=== PATIENT | female | born 1955 | race Caucasian/White ===

== ENCOUNTER 2018-01-26 19:34 | Inpatient (IN) | payer OTHER, MEDICAID ==
--- NOTE | 2018-01-26 19:43 | EDPHY ---
H & P Source: Patient, Police, EMS Exam Limitations: No limitations - Personal History Current Tetanus/Diphtheria Vaccine: Yes - Medical/Surgical History Hx Asthma: No Hx Chronic Respiratory Disease: No Hx Diabetes: No Hx Cardiac Disease: No Hx Renal Disease: No Hx Cirrhosis: No Hx Alcoholism: No Hx HIV/AIDS: No Hx Splenectomy or Spleen Trauma: No - Family History Significant Family History: No pertinent family hx - Social History Smoking Status: Former smoker Alcohol Use: Occasionally Drug Use: None Time Seen by Provider: 01/26/18 19:35 HPI/ROS: CHIEF COMPLAINT: Limited trauma HISTORY OF PRESENT ILLNESS: The patient is a 62-year-old female who was walking her dog and was pulled to the ground by the dog. She has a laceration to right forehead and a hematoma to her right shoulder and right wrist. She denies pain in her shoulder wrist and has normal range of motion. She does have little bit of pain on the right side of her head. She denies vision changes. She denies neck pain. She denies recent alcohol or drug use but does seem slightly intoxicated. It is unknown whether there was loss of consciousness. Severity: Moderate Modifying factors: None REVIEW OF SYSTEMS: Constitutional: denies: chills, fever, recent illness, recent injury EENTM: denies: blurred vision, double vision, nose congestion Respiratory: denies: cough, shortness of breath Cardiac: denies: chest pain, irregular heart rate, lightheadedness, palpitations Gastrointestinal/Abdominal: denies: abdominal pain, diarrhea, nausea, vomiting, blood streaked stools Genitourinary: denies: dysuria, frequency, hematuria, pain Musculoskeletal: See HPI Skin: denies: lesions, rash, jaundice, bruising Neurological: denies: headache, numbness, paresthesia, tingling, dizziness, weakness Hematologic/Lymphatic: denies: blood clots, easy bleeding, easy bruising Immunologic/allergic: denies: HIV/AIDS, transplant 10 systems reviewed and negative except as noted EXAM: GENERAL: Well-appearing, well-nourished and in no acute distress. HEAD: Laceration right forehead, eyebrow EYES: Pupils equal round and reactive to light, extraocular movements intact, sclera anicteric, conjunctiva are normal. ENT: TMs normal, nares patent, oropharynx clear without exudates. Moist mucous membranes. NECK: Nontender, C-collar cleared by me. Normal range of motion, supple without lymphadenopathy or JVD. LUNGS: Breath sounds clear to auscultation bilaterally and equal. No wheezes rales or rhonchi. HEART: Regular rate and rhythm without murmurs, rubs or gallops. ABDOMEN: Soft, nontender, normoactive bowel sounds. No guarding, no rebound. No masses appreciated. BACK: No CVA tenderness, no spinal tenderness, step-offs or deformities EXTREMITIES: Normal range of motion despite hematomas, denies pain, no pitting or edema. No clubbing or cyanosis. NEUROLOGICAL: Cranial nerves II through XII grossly intact. Normal speech, normal gait. 5/5 strength, normal movement in all extremities, normal sensation , normal reflexes. GCS is 15. PSYCH: Normal mood, normal affect. SKIN: See above, hematoma to right wrist and right shoulder. Warm, dry, normal turgor, no visible rashes or lesions. (Ronald Sheppard) Constitutional: Initial Vital Signs Temperature (C) 36.9 C 01/26/18 19:49 Heart Rate 88 01/26/18 19:49 Respiratory Rate 18 01/26/18 19:49 Blood Pressure 122/79 H 01/26/18 19:49 O2 Sat (%) 94 01/26/18 19:49 O2 Delivery Mode Room Air Allergies/Adverse Reactions: No Known Allergies Allergy (Unverified 01/26/18 20:20) Home Medications: Medication Instructions Recorded LORazepam [Ativan (*)] 1 mg PO BID PRN 01/26/18 PARoxetine HCL [Paxil 30mg (*)] 30 mg PO HS 01/26/18 Alendronate Sodium [Fosamax 70 MG 70 mg PO Q7D 01/27/18 (*)] Atorvastatin Calcium [Lipitor 40 40 mg PO DAILY 01/27/18 mg (*)] Calcium Carbonate/Vitamin D3 1 tab PO DAILY 01/27/18 [Calcium 600-Vit D3 800 Tablet] Ferrous Sulfate [Ferrous Sulf 325 325 mg PO DAILY 01/27/18 MG (*)] OLANZapine [Zyprexa] 15 mg PO HS 01/27/18 lamoTRIgine [LamICTAL 100 MG (*)] 200 mg PO HS 01/27/18 Medical Decision Making - Diagnostics Imaging: Discussed imaging studies w/ technical program manager Radiologist Procedures: My involvement the care this patient is solely for procedure. Please see the note of the attending physician for all other aspects of care. PROCEDURE: Laceration repair Consent: Verbal Location: Forehead Length of repair: 7 cm total Complexity: Complex Layer involvement: Full-thickness Anesthesia: Local per Dr. Sheppard Irrigation: Extensive Debridement: None Procedure description: Following good anesthesia, the wound was copiously irrigated. Wound bed was explored with a sterile glove, and there is no foreign body noted. There was apparent injury to the subcutaneous tissue. There was maceration of the overlying fascia from the frontalis muscle. No compromise of the galea. Wound borders were approximated as well as could be with such extensive maceration. Tolerated well without complication. Suture/Staple material: Subcutaneous and fascial layer: 4-0 Vicryl, 15 simple running figure-eight sutures. Cutaneous layer: 11 simple interrupted sutures Wound care: Routine as discussed Suture/Staple removal: 7 Days (Dimitri Preciado) ED Course/Re-evaluation: 8:20 p.m. The patient has intracranial bleeding and fracture of her orbital wall and right mandible. I will add CT of her neck and face. She continues to deny neck pain. I placed her cervical collar back on. She continues to move all of her extremities without difficulty. we will clean and repair her scalp laceration. 8:25 p.m. I discussed the case with Dr. Josef Echeverria who consulted suggested miss into the trauma service step-down. 9:00 p.m. I discussed the case with Dr. Merritt Willingham who will admit to the trauma service and asking that we perform CT of her chest and abdomen as well. 9:20 p.m. I discussed the case with Dr. Estevez from Oral surgery who will evaluating the morning. Also discussed the case with Dr. Negrete from ENT. ( Ronald Sheppard) Differential Diagnosis: Partial list of the Differential diagnosis considered include but were not limited to; intracranial injury, facial fractures, neck injury, wrist injury, shoulder injury and although unlikely based on the history and physical exam, I also considered pneumothorax, abdominal injury. I discussed these differential diagnoses and the plan with the [patient] as well as the usual and expected course. The [patient understands] that the diagnosis is provisional and that in medicine we are not always correct and that further workup is often warranted. Usual and customary warnings were given. All of the [patient's] questions were answered. The [patient was] instructed to return to the emergency department should the symptoms at all worsen or return, otherwise to followup with the physician as we discussed. (Ronald Sheppard) Critical Care Time: Critical care time spent by me, Dr. Sheppard exclusive with this patient was 45 minutes, exclusive of the PA time exclusive of procedures. The organ system that was at risk was neurologic and I gave diagnostics, consultation and admission to prevent worsening of the patient's condition (Ronald Sheppard) - Data Points Laboratory Results: Laboratory Results 01/26/18 19:35 01/26/18 19:35 Medications Given: Hydrocodone Bitart/Acetaminophen ([place] 5/325) 1 - 2 tab PO Q6HRS PRN PRN Reason: Pain, Moderate Able to Take PO Stop: 02/05/18 21:17 Last Admin: 01/29/18 04:51 Dose: 2 tab Atorvastatin Calcium (Lipitor) 40 mg PO DAILY WINIFRED Stop: 07/27/18 08:59 Last Admin: 01/28/18 07:30 Dose: 40 mg Lactated Ringer's (Lr) 1,000 mls @ 100 mls/hr IV CONT WINIFRED Stop: 07/25/18 21:29 Last Admin: 01/28/18 21:12 Dose: 1,000 mls Lamotrigine (Lamictal) 200 mg PO HS WINIFRED Stop: 07/26/18 20:59 Last Admin: 01/28/18 20:59 Dose: 200 mg Levetiracetam (Keppra) 750 mg PO BID WINIFRED Stop: 07/26/18 14:29 Last Admin: 01/28/18 20:59 Dose: 750 mg Morphine Sulfate (Morphine) 1 - 2 mg IVP Q1HR PRN PRN Reason: Pain, Severe Unable to Take PO Stop: 02/05/18 21:17 Last Admin: 01/28/18 18:34 Dose: 2 mg Olanzapine (Olanzapine) 15 mg PO HS WINIFRED Stop: 07/26/18 20:59 Last Admin: 01/28/18 21:00 Dose: 15 mg Paroxetine HCl (Paxil) 30 mg PO HS WINIFRED Stop: 07/26/18 20:59 Last Admin: 01/28/18 21:00 Dose: 30 mg Discontinued Medications Bacitracin (Bacitracin Ointment Tube) Confirm Administered Dose 14.2 maria ines TP .STK -MED ONE Stop: 01/28/18 15:15 Last Admin: 01/28/18 16:45 Dose: 1 tube Chlorhexidine Gluconate (Hibiclens) Confirm Administered Dose 1 btl TP .STK-MED ONE Stop: 01/28/18 15:15 Last Admin: 01/28/18 16:46 Dose: Not Given Chlorhexidine Gluconate (Peridex) Confirm Administered Dose 15 ml .ROUTE .STK- MED ONE Stop: 01/28/18 15:15 Last Admin: 01/28/18 16:47 Dose: 15 ml Diazepam (Valium) 5 - 10 mg PO Q6HRS PRN PRN Reason: Anxiety Stop: 07/25/18 21:17 Last Admin: 01/27/18 02:50 Dose: 5 mg Diazepam (Valium) 2 mg IVP EDNOW ONE Stop: 01/26/18 22:09 Last Admin: 01/26/18 22:11 Dose: 2 mg Fentanyl (Sublimaze) 25 - 100 mcg IVP Q5M PRN PRN Reason: PACU, IMMEDIATE Pain control Stop: 01/28/18 15:46 Last Admin: 01/28/18 17:05 Dose: 50 mcg Cefazolin Sodium/Dextrose (Ancef 2 Gm) 100 mls @ 200 mls/hr IV ONCALL ONE PRN Reason: Protocol Stop: 01/28/18 14:40 Last Admin: 01/28/18 15:40 Dose: 100 mls Lactated Ringer's (Lr) 1,000 mls @ 0 mls/hr IV ONCE ONE PRN Reason: As Directed Stop: 01/28/18 14:39 Last Admin: 01/28/18 14:59 Dose: 1,000 mls Lidocaine/Epinephrine (Xylocaine 1%-Epi 1:200,000) Confirm Administered Dose 30 ml .ROUTE .STK-MED ONE Stop: 01/28/18 15:15 Last Admin: 01/28/18 15:47 Dose: 30 ml Oxymetazoline HCl (Afrin Nasal [place]) 3 sprays [place] ONCALL ONE Stop: 01/28/18 14:12 Last Admin: 01/28/18 14:58 Dose: 3 sprays Departure - Departure Disposition: [facility] Acute Condition: Critical
[2018-01-26 19:58] LABS: PLATELET COUNT 201 10^3/uL (150-400)
[2018-01-26 20:06] LABS: INR 1.11 (0.83-1.16); PROTIME(PATIENT) 14.5 SEC (12.0-15.0)
[2018-01-26] MEDS ORDERED: IOPAMIDOL (ISOVUE-300) 100 ML BTL ONE (20:41)
[2018-01-26] MEDS ORDERED: ONDANSETRON 4 MG/2 ML VIAL IVP PRN (21:18)
--- NOTE | 2018-01-26 21:59 | GCON ---
NEUROSURGICAL EMERGENCY ROOM CONSULTATION DATE OF CONSULTATION: 01/26/2018 CHIEF COMPLAINT: The patient is a 62-year-old woman with a traumatic brain injury/intracranial hemor rhage. HISTORY OF PRESENT ILLNESS: The patient was reportedly in her normal state of health today walking h er dog and tripped and fell over something and hit her face on the ground with a questionable loss of consciousness. She was brought to the [facility] emergency room where head CT demon strated an intracranial hemorrhage and she presents now for neurosurgical consultation. PAST MEDICAL AND SURGICAL HISTORY: Please see the admission history as the patient does not remember . MEDICATIONS: On admission, aspirin, simvastatin, Zyprexa, Synthroid. DRUG ALLERGIES: None known. FAMILY HISTORY: Noncontributory. SOCIAL HISTORY: The patient drinks but does not smoke and reportedly lives alone in [place] but I am not 100% sure of that. NEUROLOGIC EXAMINATION: The patient awakens to voice and has a Chasidy Coma Scale of 14. She is cur rently being sutured up so I cannot check her extraocular movements or her pupils but her face appear s to be pretty symmetric. She moves all of her extremities well and follows commands. She responds appropriately to sensation. DIAGNOSTIC STUDIES: CT scan of the brain demonstrates a traumatic subarachnoid hemorrhage in the rig ht sylvian fissure/temporoparietal area. There is no significant mass effect, hydrocephalus, epidura l or subdural bleed, or other abnormalities. IMPRESSION/RECOMMENDATIONS: This is a 62-year-old woman who is slightly intoxicated who tripped and fell, and hit her head while walking her dog. She has a concussion and some traumatic subarachnoid b lood. She will be admitted to the step-down unit for q.1 hour neuro checks and started on Keppra for 2 weeks. She will have a repeat head CT in the morning. /[id number]/MODL
--- NOTE | 2018-01-26 22:04 | GHP ---
CHIEF COMPLAINT: Fall. HISTORY OF PRESENT ILLNESS: 62-year-old female was walking her dog when she fell, landing on her fac e, sustaining a laceration over the right orbital rim. She did not appear to lose consciousness; was brought in by ambulance. A variety of diagnostic tests were done including a wrist x-ray, which aracely wed no fracture; a head CT showing petechial cortical hemorrhage in the right posterior temporal lobe , nondisplaced fracture of the right supraorbital frontal bone, acute right mandibular condyle fractu re; and questionable orbital wall fracture with minimal fluid in the right maxillary sinus. CT neck was done; official reading still pending, although the patient denies neck pain. Chest x-ray was nor mal. 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 PAST MEDICAL HISTORY: Denies medical allergies. Denies previous surgery. Former smoker. Denies al cohol use, but her blood alcohol is 114. HOME MEDICATIONS: She is on a variety of medications including Zyprexa, Synthroid, aspirin, simvasta tin. She could not answer my question as to why she is on Zyprexa. REVIEW OF SYSTEMS: Patient denies asthma, heart trouble, diabetes, epilepsy, rheumatic fever. PHYSICAL EXAM: EYES: 3 x 2 cm stellate laceration being closed by the customer data technician above the right orbit . Both eyes open easily. No large ecchymosis. Pupils equal, round, react to light. EOMI. No sign of ocular muscle entrapment. The patient states her vision is normal without diplopia. ENT: Ara e protrudes in the midline. Soreness along the right mandible. No supraclavicular or axillary crepi tus. Clavicles are intact. UPPER EXTREMITIES: Atraumatic in appearance, full neurologic function. LUNGS : Clear. Chest wall stable. Sternum stable. HEART: Normal S1, S2 without murmur. ABDOMEN: Soft , benign. Pelvis stable to compression. LOWER EXTREMITIES: No abrasions, no sign of injury. LABORATORY EXAMS: Include normal CBC, normal coags, normal chemistries. Blood alcohol 114. ASSESS: Fall onto face, C-spine, official reading pending. We will obtain a CT abdomen and pelvis. She will be placed in the intermediate care unit. A repeat CT scan has been ordered for 6:00 a.m. She has already been seen by Dr. Chaparro from Neurosurgery and we have contacted by phone ENT a nd Orofacial Surgery to see her about her condylar fracture and possible orbital fracture. Neuro paulo cks will be done. We will hold aspirin. Mental status, not defined above, includes fluid speech, or iented as to place and time, tangential answering questions. Motor strength is normal throughout. /[id number]/MODL
[2018-01-26] MEDS ORDERED: DIAZEPAM 5 MG/ML 1 ML SYR IVP ONE (22:08)
[2018-01-26] MEDS ORDERED: DIAZEPAM 5 MG/ML 1 ML SYR ONE (22:09)
[2018-01-27] MEDS: DIAZEPAM 5 MG TAB PO PRN ×2 (01:53→02:50)
[2018-01-27] MEDS: LR 1,000 ML IV SCH ×2 (01:57→12:15)
--- NOTE | 2018-01-27 07:22 | TRAUMAPN ---
Trauma Progress Note Assessment/Plan: 62 year old trip and fell while walking dog alcohol intoxication Petechial hemorrhage R temporal lobe - Repeat CT was done this am, Keppra x 2 weeks Mandibular condyle fx - ? Orbital blow out fx on CT. Dr Estevez reviewed and does not think true blow out Dr. Estevez and Dr. Negrete to see Tertiary survey performed and no additional injuries noted Wired jaw diet. NPO midnight. Surgery 01/28 at 3:30 but trying to move to am PT, OT, ST S: No complaints. Was on M1 hold last evening but calm now Objective: Vital Signs Temp Pulse Resp BP Pulse Ox 36.6 C 93 21 H 140/94 H 93 01/27/18 02:00 01/27/18 04:00 01/27/18 04:00 01/27/18 04:00 01/27/18 04:00 Laboratory Results 01/27/18 00:19 01/26/18 01/27/18 01/28/18 05:59 05:59 05:59 Intake Total 700 Output Total 775 Balance 700 -775 PT 14.5 SEC (12.0-15.0) 01/26/18 19:35 INR 1.11 (0.83-1.16) 01/26/18 19:35 Physical Exam - Physical Exam General Appearance: alert, no apparent distress, thin EENT: other (suture line well approximated, periorbital ecchymosis, some TMJ tenderness) Respiratory: chest non-tender, lungs clear, normal breath sounds Cardiac/Chest: regular rate, rhythm, No edema Abdomen: normal bowel sounds, non-tender, soft Skin: normal color, warm/dry Extremities: normal range of motion, non-tender
--- NOTE | 2018-01-27 08:10 | NEUSURGPN ---
Assessment/Plan: 62y/o female s/p fall while while her dog with facial fx and tSAH. -Repeat HCT grossly stable, report pending -Continue Keppra x 2weeks total -PT/OT/CITY CARRIER ASSISTANT evals pending -Okay for Q2 hour neuro checks now and Q4 at noon if progressing well at noon -Please notify NS with any change in neuro/motor exam Subjective: Denies any headache, nausea, dizziness Objective: NAD A&Ox3 Right eye ecchymosis Smile symmetrical PERRLA MAEx4 5/5 and equal in BUE and BLE. - Physician Discussed Patient with : [facility] Neurosurgery Physical Exam - Vitals, I&O, Labs I and O 01/26/18 01/27/18 01/28/18 05:59 05:59 05:59 Intake Total 700 Output Total 775 Balance 700 -775 Weight 49.714 kg Intake: Oral (ml) 350 IV Infused (ml) 350 Lr 1,000 ml @ 100 mls/hr 350 IV CONT WINIFRED Rx#: [id number] Output: Urine (ml) 775 Bedside Commode 175 Catheter 600 Other: Intake Quantity Yes Sufficient Number of Voids 1 Bedside Commode 1 Bladder Scan Volume (ml) Bedside Commode 180 Catheter 600 Post Void Residual Scan Volume (ml) Bedside Commode 0 Catheter 180 Vital Signs Temp Pulse Resp BP Pulse Ox 36.6 C 93 21 H 140/94 H 93 01/27/18 02:00 01/27/18 04:00 01/27/18 04:00 01/27/18 04:00 01/27/18 04:00 Laboratory Results 01/27/18 00:19 ICD10 Worksheet Patient Problems: Problems Problem Status Onset Mandibular fracture, closed Acute Subarachnoid hemorrhage following injury Acute Subarachnoid hemorrhage following injury Acute
--- NOTE | 2018-01-27 09:36 | PDMN ---
Medical Necessity Medical necessity: [facility] M77 traumatic brain injury, nonsurgical treatment and Multiple Trauma GR68 y/o w/ traumatic brain injury, intracranial hemorrhage, mandibular condyle fx, orbital blow out fx from fall. Neurosurgery, ENT, maxillofacial and trauma consults, q1h neuro checks, start keppra, PT/OT/TECHNICAL SYSTEMS ARCHITECT eval ordered. Surgery to be determined once ENT and maxillofacial consults complete.
[2018-01-27] MEDS ORDERED: BACITRACIN OINTMENT 1 PACKET TP ONE (09:54)
[2018-01-27] MEDS: HYDROCODONE/APAP 5/325 TAB PO PRN ×3 (10:16→17:51)
--- NOTE | 2018-01-27 10:23 | PDCONSULT ---
Electrical And Instrumentation Manager Note: OMS consultation Re: Right subcondylar fracture HPI: 62 yo female tripped and fell while walking dog. Alcohol intoxication present upon admission. Unknown LOC. Also suffered from right forehead laceration and small right orbital floor fracture, and intracranial hemorrhage that is stable today. Medications: unreconciled PMHx: Bipolar, schizophrenia Social: + EtOH, - Tob, lives in [place] , patient's brother has been present to help with medication history PE: General: AAOx3 HEENT: Right supraorbital laceration/right forehead laceration clean, closed with bacitracin coating. Right periorbital ecchymosis with edema present. No nasal drainage. EAC clear bilaterally. Erin is unable to report if her bite "feels normal." Missing mandibular anterior teeth. Occlusion appears stable and reproducible. Slight tenderness over right TMJ. Neuro: No V3 paresthesia present. CT maxfac w/o contrast 01/26/18: Right subcondylar fracture with displacement of condylar head medially but within glenoid fossa. Right orbital floor fracture. A: 62 y/o female s/p fall with unknown LOC with displaced right subcondylar fracture P: Nonchew diet. Recommend MMF with 2 weeks with guiding elastics after 2 weeks to stabilize occlusion and continued liquid/non-chew diet for 6-8 weeks. Doretha Estevez DDS [phone]
[2018-01-27] MEDS ORDERED: LORazepam 1 MG TAB PO PRN (13:50)
[2018-01-27] MEDS ORDERED: ALENDRONATE SODIUM 70 MG TAB PO SCH (14:00)
[2018-01-27] MEDS: levETIRAcetam 250 MG TAB PO SCH ×2 (14:30→21:43)
--- NOTE | 2018-01-27 14:44 | ASMTCMCOM ---
CM Note CM Note Notes: 62yr old female who fell while walking her dog, admitted for SAH, Facial fx's. Patient had BAL of 114 at the time. Spoke to her brother, Neil who reports that she takes Ativan and other meds for her dx schizophrenia and bipolar. Neil reports that patient lives with her service dog in a apartment in [place]. Patient to have her jaw wired and she will be on a liquid/non chew diet for 6-8wks. Brother, Neil does not feel as though patient could take care of herself at home and hoping that she could go to a Rehab before going home. Therapies have begun working with her. CM to follow for discharge needs. Date Signed: 01/27/2018 02:43 PM Electronically Signed By:Nuria Mcdonald LCSW
--- NOTE | 2018-01-27 17:23 | GCON ---
CRITICAL CARE CONSULTATION DATE OF CONSULTATION: 01/27/2018 REASON FOR CONSULTATION: Intensive care unit evaluation and management following a fall with closed head injury and facial fractures. HISTORY: The patient is a 62-year-old woman with a history of schizophrenia. She was walking her do g yesterday and tripped, striking her head/face on the ground. She may have lost consciousness. The fall was apparently witnessed. She was brought to the emergency department by EMS. CT scan of the head showed evidence of a small subarachnoid hemorrhage on the right, in the area of the sylvian fiss ure. A mandibular condyle fracture was also present. Followup CT scan of 8 hours showed no increase in her subarachnoid blood. There were no intraparenchymal areas of hemorrhage. Swelling was noted about the right eye. The patient has been seen by Trauma Surgery, Neurosurgery, and ENT. Imaging of the neck, chest, etc., Showed no evidence of acute trauma. Some degenerative disk disease was noted in the cervical spine. A right inferior orbital blowout fracture was not felt to be present after r eview of images. A laceration related to the right forehead above the eye was sutured. The patient was admitted to the intensive care unit in stable condition for neurologic followup. PAST MEDICAL HISTORY: Remarkable for schizoaffective disorder. MEDICATIONS: Included Paxil, Lamictal, Zyprexa, p.r.n. Ativan, Lipitor, and Fosamax, as well as iron , calcium and vitamin D. DRUG ALLERGIES: None known. SOCIAL HISTORY: The patient lives alone. She has a dog. She denies smoking cigarettes. She will h ave 1 drink at night. She denies being a heavy drinker or having had problems with alcohol withdrawa l in the past. FAMILY HISTORY: Noncontributory. REVIEW OF SYSTEMS: A 10-point review of systems is negative. PHYSICAL EXAMINATION: GENERAL: Reveals a woman who is sitting upright at approximately 45 degrees. She has facial swelling on the right and ecchymoses, and a sutured laceration related to the right p eriorbital area. Her right jaw is swollen. VITAL SIGNS: Blood pressure is 130/75, heart rate 94 wi th sinus rhythm on the monitor. Respiratory rate is 16. She is afebrile. HEENT: Remarkable for po sttraumatic changes as outlined above. She is on room air. NECK: Without jugular venous distention , lymphadenopathy, or thyromegaly. CHEST: Clear bilaterally. HEART: Regular in rate and rhythm. There are no gallops, no significant murmurs. ABDOMEN: Soft, nontender. Bowel sounds are somewhat decreased but present. No Daniels catheter is in place. She is using the bedside commode with good ur ine output reported. EXTREMITIES: Unremarkable for edema, cords, or tenderness. There are no signs of significant trauma of the extremities. NEUROLOGIC: Nonfocal. Answers seem appropriate, but per haps a little slow. She is oriented x3. DATABASE: Multiple radiologic studies are as noted above and reported in the chart. Significant fin dings primarily are related to the head and face. White blood cell count is 6600, hematocrit 36, platelets 201,000. PT and PTT were normal on admissio n, as was basic metabolic panel. Admission blood alcohol was 114. ASSESSMENT: 1. Status post mechanical fall while walking her dog. 2. Closed head injury with a small area of subarachnoid hemorrhage noted. Followup CT scan of the h ead at approximately 8 hours showed no progression of her bleed. No intraparenchymal blood was noted in the right temporal area. A right mandibular condylar fracture is present. She has been seen by Neurosurgery, as well as Trauma Surgery. She is being treated with Keppra. Neurologic checks are be ing done. She has been stable. 3. Mandibular fracture. She has been seen by ENT. She will be taken to the operating room for surg ical repair tomorrow. 4. History of schizoaffective disorder. Her usual outpatient medications including Lamictal, Ativan , olanzapine, and paroxetine will be continued. PLAN AND RECOMMENDATIONS: The patient will be kept in the intensive care unit. Neurologic status wi ll be followed. Usual medications will be continued. She will be made n.p.o. tonight for mandibular surgery in the a.m. Her jaw will be wired. Further plans and recommendations will be made based on her progress over the next 12-24 hours. /[id number]/MODL
[2018-01-27] MEDS: OLANZapine 10 MG TAB PO SCH (21:44)
[2018-01-27] MEDS: lamoTRIgine 100 MG TAB PO SCH (21:44)
--- NOTE | 2018-01-27 22:09 | GCON ---
ENT CONSULTATION CHIEF COMPLAINT: Facial trauma. HISTORY OF PRESENT ILLNESS: Patient was admitted through the emergency department for facial trauma. On CT scan, she was found to have a right subcondylar fracture with displacement of the condylar he ad and right orbital floor fracture. I reviewed the radiology images and agree with the radiology re ad. Her main complaints when I saw her this morning were some facial pain, but she was largely grogg y and not a good historian. Nursing, who was with her, states that she has been largely appropriate but did have a sitter as she had been under the influence and had tried to leave. SURGICAL HISTORY: Unknown. FAMILY HISTORY: Noncontributory. SOCIAL HISTORY: Alcohol use, former smoker. MEDICAL HISTORY: Bipolar, schizophrenia. PHYSICAL EXAM: VITAL SIGNS: Blood pressure is 153/82, heart rate 94, respiratory rate 20, O2 satura tion is 95% on room air, temperature 37 degrees Celsius. GENERAL: Interactive, somnolent, no acute distress. HEAD AND FACE: Normocephalic. Right supraorbital laceration at the brow. This is suture d intact. Mild superior periorbital ecchymoses at the right. EARS: Bilateral pinnae and canals are intact and unremarkable. No evidence of effusion. EYES: EOMI. NOSE: No palpable step-offs. Unr emarkable anterior rhinoscopy. No polyps, purulence, bleeding. MANDIBLE: Tender to palpation at th e right temporomandibular joint. ORAL CAVITY: Limited oral range of motion. NECK: Supple without palpable mass or adenopathy. Trachea midline. ASSESSMENT/PLAN: Right orbital fractures, largely nondisplaced. No evidence of entrapment. Would n ot recommend open reduction. Would recommend avoiding nose blowing for a period of 1 week. Right christianson bcondylar fracture would be appropriate for MMF. It appears that OMFS is seeing the patient and will be managing this. Please call with any concerns or need for followup. Besides the subcondylar fracture, her other ENT needs look to be met. Would recommend removal of sutures in 7-10 days depending on the appearance of the laceration. Apply bacitracin b.i.d. to this otherwise. /[id number]/MODL
[2018-01-28] MEDS: HYDROCODONE/APAP 5/325 TAB PO PRN (07:30)
[2018-01-28] MEDS: ATORVASTATIN CALCIUM 40 MG TAB PO SCH (07:30)
--- NOTE | 2018-01-28 08:51 | SOAPPROG ---
SOAP Progress Note Assessment/Plan: Assessment: 62 yo M with small subarachnoid hemorrhage and ICH after fall Plan: neuro: stable and doing well overall on keppra PT/OT/ST ok to dc when cleared by Trauma follow up with Dr Dickerson in 2 weeks with repeat head CT wo contrast please call with neuro changes 01/28/18 08:48 Subjective: mild headaches, no N/V. no weakness. Objective: Vital Signs Temp Pulse Resp BP Pulse Ox 37.1 C 83 16 128/73 H 96 01/28/18 07:24 01/28/18 07:24 01/28/18 07:24 01/28/18 07:24 01/28/18 07:24 Laboratory Results 01/27/18 00:19 01/27/18 01/28/18 01/29/18 05:59 05:59 05:59 Intake Total 700 3062 Output Total 2350 Balance 700 712 PT 14.5 SEC (12.0-15.0) 01/26/18 19:35 INR 1.11 (0.83-1.16) 01/26/18 19:35 AAOx4, +FC PERRL, EOMI, no facial droop YUSUF x 4 + light touch ICD10 Worksheet Patient Problems: Problems Problem Status Onset Mandibular fracture, closed Acute Subarachnoid hemorrhage following injury Acute Subarachnoid hemorrhage following injury Acute
[2018-01-28] MEDS: levETIRAcetam 250 MG TAB PO SCH ×2 (08:58→20:59)
--- NOTE | 2018-01-28 09:47 | TRAUMAPN ---
Trauma Progress Note - Problem/Surgery Performed (1) Fall Assessment/Plan: mechanism of injury Qualifiers: Encounter type: initial encounter Qualified Code(s): W19.XXXA - Unspecified fall, initial encounter (2) Orbital roof fracture Assessment/Plan: non op managment per Dr. Negrete Qualifiers: Encounter type: initial encounter (3) Mandibular fracture, closed Assessment/Plan: scheduled for MMF today with Dr. Estevez Qualifiers: Encounter type: initial encounter Laterality: right (4) Subarachnoid hemorrhage following injury Assessment/Plan: neurosurgery has cleared patient for discharge/follow up as outpatient Qualifiers: Encounter type: initial encounter Loss of consciousness presence/duration: with LOC of 30 min or less Qualified Code(s): S06.6X1A - Traumatic subarachnoid hemorrhage with loss of consciousness of 30 minutes or less, initial encounter (5) Tenderness of neck Assessment/Plan: post cervical tenderness, CT neg for fractures/extensive DDD will obtain MRI to rule out occult injury (6) Laceration of face without complication Assessment/Plan: will need suture removal 5-7 days Qualifiers: Encounter type: initial encounter Qualified Code(s): S01.81XA - Laceration without foreign body of other part of head, initial encounter Assessment/Plan: s/p mechanical fall with right orbital and mandibular fractures schedule for MMF later today initial C-spine assessment clinically and with CT neg/patient now complaining of numbness right foot and tender C6 spinous process will obtain MRI to rule out occult injury Subjective: complaining of numbness Left foot Objective: Vital Signs Temp Pulse Resp BP Pulse Ox 37.1 C 83 16 128/73 H 96 01/28/18 07:24 01/28/18 07:24 01/28/18 07:24 01/28/18 07:24 01/28/18 07:24 Laboratory Results 01/27/18 00:19 01/27/18 01/28/18 01/29/18 05:59 05:59 05:59 Intake Total 700 3062 Output Total 2350 Balance 700 712 PT 14.5 SEC (12.0-15.0) 01/26/18 19:35 INR 1.11 (0.83-1.16) 01/26/18 19:35 Physical Exam - Physical Exam General Appearance: alert, thin EENT: other (right tanesha-orbital ecchymosis) Neck: tender midline (C6) Respiratory: lungs clear, decreased breath sounds Cardiac/Chest: regular rate, rhythm Peripheral Pulses: 2+: dorsalis-pedis (R), dorsalis-pedis (L) Abdomen: non-tender, soft Pelvic Exam: deferred Rectal: deferred Skin: warm/dry Neuro/Psych: oriented x 3, sensory deficit (hypoesthesia dorsal and plantar aspects right foot/diffuse motor weakness)
--- NOTE | 2018-01-28 13:03 | PDINTPN ---
Unit Manager Progress Note Assessment/Plan: Assessment: Status post mechanical fall Concussion, closed head injury. Small subarachnoid hemorrhage. Neurosurgery signing off. Mandibular fracture. To be repaired today. History of schizophrenia and bipolar disease. On her usual outpatient medications Alcohol abuse. Drinks most days but not much: a beer or 2 by report. Would seem to be in no risk for alcohol withdrawal. Not on CIWA. Metabolic: No issues identified DVT prophylaxis: SCDs only secondary to SAH and jaw surgery. GI prophylaxis: None indicated, eating Disposition: Lives alone. Likely will need some support prior to going home. Possibly in patient rehab versus SNF. Plan: Continue care in the intensive care unit today. Continue neuro checks. To go to the OR this afternoon for repair and wiring of her jaw. The patient's sitter would not appear to be needed at this time as she is now quite calm, not asking to leave. The her medical hold/detained her can be lifted. 25 min of clinic time spent directly with the patient. Discussed with nursing, social work specialist, Trauma surgery, and ICU multi disciplinary team. Subjective: Doing okay, some headache. Oriented x3 but remains somewhat slow and possibly confused at times. The sitter is in with the patient. Objective: Vital Signs Temp Pulse Resp BP Pulse Ox 36.8 C 88 14 102/54 L 96 01/28/18 11:48 01/28/18 11:48 01/28/18 11:48 01/28/18 11:48 01/28/18 11:48 Laboratory Results 01/27/18 00:19 01/27/18 01/28/18 01/29/18 05:59 05:59 05:59 Intake Total 700 3062 Output Total 2350 Balance 700 712 PT 14.5 SEC (12.0-15.0) 01/26/18 19:35 INR 1.11 (0.83-1.16) 01/26/18 19:35 Physical Exam - Physical Exam General Appearance: alert, no apparent distress, thin, other (Evolving facial trauma) EENT: other (On room air), No normal ENT inspection (Evolving right-sided trauma , swelling, ecchymoses) Neck: normal inspection (No JVD) Respiratory: lungs clear, normal breath sounds Cardiac/Chest: regular rate, rhythm, No gallop Abdomen: normal bowel sounds, non-tender, soft Pelvic Exam: other (No Daniels catheter) Skin: normal color, warm/dry Extremities: No pedal edema Neuro/Psych: no motor/sensory deficits, No cognition abnormalities (However, a little slow secondary to concussion verses underlying psychiatric disease and associated medications?) ICD10 Worksheet Patient Problems: Problems Problem Status Onset Fall Acute Orbital roof fracture Acute Tenderness of neck Acute Laceration of face without complication Acute Subarachnoid hemorrhage following injury Acute Subarachnoid hemorrhage following injury Acute Mandibular fracture, closed Acute
--- NOTE | 2018-01-28 13:56 | ASMTCMCOM ---
CM Note CM Note Notes: Therapies recommending SNF Rehab. To have mandible surgery today and MRI R foot-c/o numbness. Spkoe to patient's brother, Neil about location of SNF's. He prefers that she stay in [facility]. Referrals sent to [facility] Date Signed: 01/28/2018 01:54 PM Electronically Signed By:Nuria Mcdonald LCSW
[2018-01-28] MEDS ORDERED: OXYMETAZOLINE 30 ML NASAL SPRAY EACHNARE ONE (14:11)
[2018-01-28] MEDS ORDERED: ceFAZolin 2 GM/DEXTROSE 100 ML IV ONE (14:11)
[2018-01-28] MEDS ORDERED: LR 1,000 ML IV ONE (14:38)
[2018-01-28] MEDS ORDERED: ONDANSETRON 4 MG/2 ML VIAL IVP PRN (14:46)
[2018-01-28] MEDS ORDERED: HYDROmorphONE/DILAUDID 2 MG/ML INJ IVP PRN ×2 (14:46→16:44)
[2018-01-28] MEDS ORDERED: NALOXONE HCL 0.4 MG/ML INJ IVP PRN ×2 (14:46→16:44)
[2018-01-28] MEDS ORDERED: fentaNYL 100 MCG/2 ML INJ IVP PRN (14:46)
[2018-01-28] MEDS ORDERED: oxyCODONE IR 5 MG TAB PO PRN (14:46)
[2018-01-28] MEDS ORDERED: ACETAMINOPHEN 500 MG TAB PO PRN (14:46)
[2018-01-28] MEDS ORDERED: ALBUTEROL 3 ML DEYVIAL IH PRN (14:46)
--- NOTE | 2018-01-28 14:48 | PDANEPAE ---
ANE History of Present Illness Mandible ORIF ANE Past Medical History - Cardiovascular History Hx Coronary Artery / Peripheral Vascular Disease: Yes - Pulmonary History Hx Oxygen in Use at Home: No Hx Sleep Apnea: No Sleep Apnea Screening Result - Last Documented: Negative - Endocrine History Hx Diabetes: No - Chronic Pain History Chronic Pain: No ANE Review of Systems Review of Systems: ANE Patient History - Allergies Allergies/Adverse Reactions: No Known Allergies Allergy (Unverified 01/26/18 20:20) - Home Medications Home Medications: LORazepam [Ativan (*)] 1 mg PO BID PRN 01/26/18 [Last Taken Unknown] PARoxetine HCL [Paxil 30mg (*)] 30 mg PO HS 01/26/18 [Last Taken Unknown] Alendronate Sodium [Fosamax 70 MG (*)] 70 mg PO Q7D 01/27/18 [Last Taken Unknown ] Atorvastatin Calcium [Lipitor 40 mg (*)] 40 mg PO DAILY 01/27/18 [Last Taken Unknown] Calcium Carbonate/Vitamin D3 [Calcium 600-Vit D3 800 Tablet] 1 tab PO DAILY [Last Taken Unknown] Ferrous Sulfate [Ferrous Sulf 325 MG (*)] 325 mg PO DAILY 01/27/18 [Last Taken Unknown] OLANZapine [Zyprexa] 15 mg PO HS 01/27/18 [Last Taken Unknown] lamoTRIgine [LamICTAL 100 MG (*)] 200 mg PO HS 01/27/18 [Last Taken Unknown] - NPO status NPO Since - Liquids (Date): 01/28/18 NPO Since - Liquids (Time): 00:00 NPO Since - Solids (Date): 01/25/18 NPO Since - Solids (Time): 17:00 - Smoking Hx Smoking Status: Former smoker - Alcohol Use Alcohol Use: Occasionally ANE Labs/Vital Signs - Labs Result Diagrams: 01/26/18 19:35 01/27/18 00:19 - Vital Signs Blood Pressure: 102/54 Heart Rate: 88 Respiratory Rate: 14 O2 Sat (%): 96 Height: 170.18 cm Weight: 49.714 kg ANE Physical Exam - Airway Neck exam: FROM Mallampati Score: Class 2 Mouth exam: normal dental/mouth exam - Pulmonary Pulmonary: clear to auscultation - Cardiovascular Cardiovascular: regular rate and rhythym - ASA Status ASA Status: II ANE Anesthesia Plan Anesthesia Plan: general endotracheal anesthesia Specialized Airway: nasal intubation
--- NOTE | 2018-01-28 14:50 | ASMTCMCOM ---
CM Note CM Note Notes: Referrals sent out. Pasrr completed and faxed to An[facility] today. Date Signed: 01/28/2018 02:50 PM Electronically Signed By:Nuria Mcdonald LCSW
[2018-01-28] MEDS ORDERED: PROPOFOL 200 MG/20 ML VIAL ONE (15:06)
[2018-01-28] MEDS ORDERED: ROCURONIUM 50 MG/5 ML VIAL ONE (15:08)
[2018-01-28] MEDS ORDERED: DEXAMETHASONE 4 MG/ML VIAL ONE (15:08)
[2018-01-28] MEDS ORDERED: ONDANSETRON 4 MG/2 ML VIAL ONE (15:08)
[2018-01-28] MEDS ORDERED: fentaNYL 250 MCG/5 ML INJ ONE (15:09)
[2018-01-28] MEDS ORDERED: BACITRACIN ZINC 14.2 GM OINTTUBE TP ONE (15:14)
[2018-01-28] MEDS ORDERED: LIDO/EPI 1% **for epidural** 30 ML SDV ONE (15:14)
[2018-01-28] MEDS ORDERED: CHLORHEXIDINE GLUCONATE 15 ML UDL ONE (15:14)
[2018-01-28] MEDS ORDERED: CHLORHEXIDINE GLUC HIBICLENS 118 ML BTL TP ONE (15:14)
--- NOTE | 2018-01-28 15:36 | PDHPUP ---
History & Physical Update H&P update statement: This history and physical update is based on an assessment of the patient which was completed after admission or registration (within 24 hours), but prior to the surgery/procedure. H&P update: H&P reviewed & patient examined, no change in patient's condition since H&P completed
[2018-01-28] MEDS ORDERED: PHENYLEPHRINE HCL 100 MCG/ML SYR ONE (16:06)
[2018-01-28] MEDS ORDERED: SUGAMMADEX SODIUM 200 MG/2 ML VIAL IVP ONE (16:23)
[2018-01-28] MEDS ORDERED: LABETALOL HCL 5 MG/ML 20 ML MDV ONE (16:40)
[2018-01-28] MEDS ORDERED: LABETALOL HCL 5 MG/ML 20 ML MDV IVP PRN (16:44)
--- NOTE | 2018-01-28 16:44 | POSTANESTH ---
Post Anesthetic Evaluation Cardiovascular Status: Normal, Stable Respiratory Status: Normal, Stable Level of Consciousness/Mental Status: Can Participate in Eval, Mildly Sleepy, Arousable Pain Control: Adequate, Prn Tx Ordered Nausea/Vomiting Control: Adequate, Prn Tx Ordered Complications Possibly Related to Anesthesia: None Noted
[2018-01-28] MEDS ORDERED: fentaNYL 100 MCG/2 ML INJ ONE (17:03)
[2018-01-28] MEDS: lamoTRIgine 100 MG TAB PO SCH (20:59)
[2018-01-28] MEDS: OLANZapine 10 MG TAB PO SCH (21:00)
[2018-01-28] MEDS: LR 1,000 ML IV SCH (21:12)
[2018-01-29] MEDS: HYDROCODONE/APAP 5/325 TAB PO PRN ×3 (04:51→20:09)
--- NOTE | 2018-01-29 08:02 | NEUSURGPN ---
Assessment/Plan: 62y/o female s/p fall while while her dog with facial fx and tSAH. Repeat HCT grossly stable, report pending Continue Keppra x 2weeks total PT/OT/PROCUREMENT CONSULTANT evals ok to dc when cleared by Trauma follow up with Dr Dickerson in 2 weeks with repeat head CT wo contrast Please notify NS with any change in neuro/motor exam Subjective: Mild headache. Denies any dizziness, nausea Objective: right eye ecchymosis and facial edmea. PERRLA. 5/5 and equal in BUE and BLE. - Physician Discussed Patient with .: Krysta Neurosurgery Physical Exam - Vitals, I&O, Labs I and O 01/28/18 01/29/18 01/30/18 05:59 05:59 05:59 Intake Total 3062 2140 Output Total 2350 605 Balance 712 1535 Weight 49.714 kg 49.714 kg Intake: Oral (ml) 1910 240 IV Intake (ml) 800 IV Infused (ml) 1152 1100 Lr 1,000 ml @ 100 mls/hr 1152 1100 IV CONT WINIFRED Rx#: [id number] Output: Urine (ml) 2350 600 Bedside Commode 1750 Catheter 600 Toilet 600 Estimated Blood Loss (ml) 5 Other: Intake Quantity No Sufficient Number of Voids Toilet 1 1 Number of Stools Toilet 1 Bladder Scan Volume (ml) Bedside Commode 180 Catheter 600 Post Void Residual Scan Volume (ml) Bedside Commode 88 Catheter 180 Vital Signs Temp Pulse Resp BP Pulse Ox 36.9 C 82 17 120/66 97 01/29/18 07:55 01/29/18 07:55 01/29/18 07:55 01/29/18 07:55 01/29/18 07:55 Laboratory Results 01/29/18 05:30 01/29/18 05:30 ICD10 Worksheet Patient Problems: Problems Problem Status Onset Fall Acute Laceration of face without complication Acute Mandibular fracture, closed Acute Orbital roof fracture Acute Subarachnoid hemorrhage following injury Acute Subarachnoid hemorrhage following injury Acute Tenderness of neck Acute
[2018-01-29] MEDS: ATORVASTATIN CALCIUM 40 MG TAB PO SCH (09:03)
[2018-01-29] MEDS: levETIRAcetam 250 MG TAB PO SCH ×2 (09:03→20:08)
--- NOTE | 2018-01-29 10:35 | TRAUMAPN ---
Trauma Progress Note Assessment/Plan: Concussion, CHI, SAH: nonoperative, neurosurgery has signed off Mandibular fracture: s/p ORIF Dr. Estevez. Ok to have wired jaw diet Orbital roof fx: nonoperative Dr. Negrete Neck pain: CT negative Face laceration: will need sutures out in 7-10 days S: Sitting in chair. C/o pain O: Afebrile Face: laceration cdi, sutures intact, R periorbital ecchymosis Neuro: A&Ox3 Cardiac: RRR Lungs: CTA bilaterally Abdomen: soft, nontender Objective: Vital Signs Temp Pulse Resp BP Pulse Ox 36.9 C 82 17 120/66 97 01/29/18 07:55 01/29/18 07:55 01/29/18 07:55 01/29/18 07:55 01/29/18 07:55 Laboratory Results 01/29/18 05:30 01/29/18 05:30 01/28/18 01/29/18 01/30/18 05:59 05:59 05:59 Intake Total 3062 2140 Output Total 2350 605 Balance 712 1535 PT 14.5 SEC (12.0-15.0) 01/26/18 19:35 INR 1.11 (0.83-1.16) 01/26/18 19:35
--- NOTE | 2018-01-29 12:22 | SOAPPROG ---
SOAP Progress Note Assessment/Plan: Assessment: SEEN WITH MY PA MARIZA FERNANDEZ/ PLEASE REFER TO HER NOTE ORIENTED, ALERT AND COOPERATIVE STATUS POST HEAD INJURY APPEARS TO BE STABLE FROM HER INJURIES Plan: BEGIN WHERE JAW DIET/TRANSFER TO [facility] 01/29/18 12:20 Objective: Vital Signs Temp Pulse Resp BP Pulse Ox 36.9 C 76 14 100/56 L 94 01/29/18 07:55 01/29/18 12:00 01/29/18 12:00 01/29/18 12:00 01/29/18 12:00 Laboratory Results 01/29/18 05:30 01/29/18 05:30 01/28/18 01/29/18 01/30/18 05:59 05:59 05:59 Intake Total 3062 2140 Output Total 2350 605 Balance 712 1535 PT 14.5 SEC (12.0-15.0) 01/26/18 19:35 INR 1.11 (0.83-1.16) 01/26/18 19:35 ICD10 Worksheet Patient Problems: Problems Problem Status Onset Fall Acute Laceration of face without complication Acute Mandibular fracture, closed Acute Orbital roof fracture Acute Subarachnoid hemorrhage following injury Acute Subarachnoid hemorrhage following injury Acute Tenderness of neck Acute
--- NOTE | 2018-01-29 12:54 | PDINTPN ---
Head Cook Progress Note Assessment/Plan: Assessment: Status post mechanical fall Concussion, closed head injury. Small subarachnoid hemorrhage. Neurosurgery signing off. Mandibular fracture. Status post repair and/or wiring yesterday. History of schizophrenia and bipolar disease. On her usual outpatient medications Alcohol abuse. Drinks most days but not much: a beer or 2 by report. No signs or symptoms of alcohol withdrawal. Not on CIWA. Metabolic: No issues identified DVT prophylaxis: SCDs. Will be ambulating GI prophylaxis: None indicated, eating Disposition: Lives alone. Plan is to discharge to SNF, probably tomorrow. Plan: Can transfer to a medical-surgical bed. Plans and discharge per trauma surgery. Follow-up with ENT and outpatient psychiatry. I will sign off at this point in time. Please call if needed. 20 min of clinic time spent directly with the patient. Discussed with nursing, social staff worker, Trauma surgery, and ICU multi disciplinary team. Subjective: Doing well following jaw surgery. Able to eat soft consistency foods. Some jaw pain as expected and residual headache. Otherwise doing well. Objective: Vital Signs Temp Pulse Resp BP Pulse Ox 36.9 C 76 14 100/56 L 94 01/29/18 07:55 01/29/18 12:00 01/29/18 12:00 01/29/18 12:00 01/29/18 12:00 Laboratory Results 01/29/18 05:30 01/29/18 05:30 01/28/18 01/29/18 01/30/18 05:59 05:59 05:59 Intake Total 3062 2140 Output Total 2350 605 Balance 712 1535 PT 14.5 SEC (12.0-15.0) 01/26/18 19:35 INR 1.11 (0.83-1.16) 01/26/18 19:35 Physical Exam - Physical Exam General Appearance: alert, no apparent distress, other (Up in chair) EENT: PERRL/EOMI, other (Evolving right-sided facial injuries. Jaw wired) Neck: normal inspection (No JVD) Respiratory: lungs clear, normal breath sounds Cardiac/Chest: regular rate, rhythm, No gallop Abdomen: normal bowel sounds, non-tender, soft Pelvic Exam: other (No Daniels catheter) Skin: normal color, warm/dry Extremities: No pedal edema Neuro/Psych: no motor/sensory deficits, No cognition abnormalities ICD10 Worksheet Patient Problems: Problems Problem Status Onset Fall Acute Orbital roof fracture Acute Tenderness of neck Acute Laceration of face without complication Acute Subarachnoid hemorrhage following injury Acute Subarachnoid hemorrhage following injury Acute Mandibular fracture, closed Acute
[2018-01-29] MEDS: OLANZapine 10 MG TAB PO SCH (20:08)
[2018-01-29] MEDS: lamoTRIgine 100 MG TAB PO SCH (20:09)
--- NOTE | 2018-01-29 21:50 | POSTOPPROG ---
Post Op Note Date of Operation: 01/28/18 Surgeon: Doretha Estevez Anesthesia: GET(General Endotracheal) Pre-op Diagnosis: Right mandibular subcondylar fracture Post-op Diagnosis: Right mandibular subcondylar fracture Indication: Mandibular fracture, unstable occlusion Procedure: Closed treatment mandible fracture Findings: Unstable, Non-reproducible occlusion Inf/Abcess present in the surg proc area at time of surgery?: No EBL: Minimal Total fluids administered: 1000ml crystalloid Complications: None Specimen(s): None
--- NOTE | 2018-01-29 22:06 | SUROPNOTE ---
[facility] Operative Report - Surgery Oral and Maxillofacial Operative Note Date of service : 01/28/2018 Pre-op Diagnosis: Right subcondylar fracture Post-op Diagnosis: Right subcondylar, unstable occlusion Procedure: Maxillomandibular fixation with intermaxillary fixation screws Surgeon: Doretha Estevez DDS Anesthesia: NET Fluids: 1000ml crystalloid EBL: minimal Findings: Unstable occlusion Complications: None Patient met in pre-operative holding. No changes in medical history. Consent, risks, benefits were discussed, questions sought and answered and signed for closed treatment of mandible fracture. Patient transferred to OR #3 by OR staff and positioned in supine position. Monitors placed and deemed to be working appropriately. Patient underwent GA via NET intubation via left naris. Throat packed placed and mouth cleaned with Peridex and suctioned. 5cc Lidocaine 1% with 1:100k epi local infiltration on buccal maxilla and mandibular vestibules. Patient prepped and draped in [facility] sterile fashion. Intermaxillary fixation screws were placed x4 in the maxilla and mandible, 8mm screws. Throat pack removed and 4 intermaxillary 24G SS wires placed to gain stable intermaxillary fixation without movement of occlusion. Her face was cleaned and dried with laps. Erin awoke in the OR and was extubated without complications. She was transferred to the PACU where she recovered and returned to her inpatient room. Erin is on a non-chew liquid diet and will follow up at [facility] in 7 days for evaluation of right subcondylar fracture.
--- NOTE | 2018-01-30 08:59 | TRAUMAPN ---
Trauma Progress Note Assessment/Plan: Concussion, CHI, SAH: nonoperative Mandibular fracture: s/p ORIF Dr. Estevez. Ok to have wired jaw diet Orbital roof fx: nonoperative Dr. Negrete Neck pain: CT negative Face laceration: will need sutures out in 7-10 days, bacitracin Rehab planning - inpt rehab assessment ordered Sitting in chair. C/o left jaw pain only. showered yesterday. no CP or SOB. no abd c/o. seen by PT/OT - recc inpt rehab AVSS facial abrasions dry - sutures clean PERRLA/EOMI voice strong tender left jaw without erythema ext unremarkable Objective: Vital Signs Temp Pulse Resp BP Pulse Ox 36.7 C 100 16 143/75 H 96 01/30/18 08:00 01/30/18 08:00 01/30/18 08:00 01/30/18 08:00 01/30/18 08:00 Laboratory Results 01/29/18 05:30 01/29/18 05:30 01/29/18 01/30/18 01/31/18 05:59 05:59 05:59 Intake Total 2140 1100 Output Total 605 700 Balance 1535 400 PT 14.5 SEC (12.0-15.0) 01/26/18 19:35 INR 1.11 (0.83-1.16) 01/26/18 19:35
[2018-01-30] MEDS: BACITRACIN OINTMENT 1 PACKET TP SCH ×2 (09:15→20:40)
[2018-01-30] MEDS: ATORVASTATIN CALCIUM 40 MG TAB PO SCH (09:15)
[2018-01-30] MEDS: levETIRAcetam 250 MG TAB PO SCH ×2 (09:15→20:40)
[2018-01-30] MEDS: HYDROCODONE/APAP 5/325 TAB PO PRN ×3 (09:20→22:02)
[2018-01-30] MEDS ORDERED: BISACODYL 10 MG SUPP PR PRN (16:45)
[2018-01-30] MEDS ORDERED: POLYETHYLENE GLYCOL 3350 17 GM PKT PO PRN (16:45)
[2018-01-30] MEDS ORDERED: LACTULOSE 20 GM/30 ML UDCUP PO PRN (16:45)
--- NOTE | 2018-01-30 17:53 | ASMTCMCOM ---
CM Note CM Note Notes: [facility] is interested in patient but they need her to sign a release so they can check on her Medicaid which is coming up lapsed in their computer. CM checked with Ivanna here and they stated patient's Medicaid is current. Ajit from [facility] would still like to check on it and requested the release. The release forms were left on 3N desk as it was not obtained today. Spoke with from inpatient rehab and she states she thinks patient is more appropriate for SNF as her jaw is wired shut and this poses many issues in 24 hour care. [facility] is willing to take the patient if her Medicaid is current . CM to get release signed and faxed to [facility]. Inpatient rehab said they would reevaluate Friday if the patient was still here. SNF rehab appears to be the better overall choice at this time for patient. CM will follow. Date Signed: 01/30/2018 05:53 PM Electronically Signed By:Fozia Rosas LCSW
[2018-01-30] MEDS: OLANZapine 10 MG TAB PO SCH (20:40)
[2018-01-30] MEDS: lamoTRIgine 100 MG TAB PO SCH (20:40)
[2018-01-30] MEDS: SENNOSIDES/DOCUSATE SODIUM TAB PO SCH (20:40)
[2018-01-31] MEDS: HYDROCODONE/APAP 5/325 TAB PO PRN ×3 (05:29→23:14)
--- NOTE | 2018-01-31 09:14 | TRAUMAPN ---
Trauma Progress Note - Problem/Surgery Performed (1) Fall Assessment/Plan: mechanism of injury Qualifiers: Encounter type: initial encounter Qualified Code(s): W19.XXXA - Unspecified fall, initial encounter (2) Orbital roof fracture Assessment/Plan: non op managment per Dr. Negrete Qualifiers: Encounter type: initial encounter (3) Mandibular fracture, closed Assessment/Plan: s/p MMF Dr. Doretha Estevez Qualifiers: Encounter type: initial encounter Laterality: right (4) Subarachnoid hemorrhage following injury Assessment/Plan: neurosurgery has cleared patient for discharge/follow up as outpatient Qualifiers: Encounter type: initial encounter Loss of consciousness presence/duration: with LOC of 30 min or less Qualified Code(s): S06.6X1A - Traumatic subarachnoid hemorrhage with loss of consciousness of 30 minutes or less, initial encounter (5) Laceration of face without complication Assessment/Plan: will need suture removal 5-7 days Qualifiers: Encounter type: initial encounter Qualified Code(s): S01.81XA - Laceration without foreign body of other part of head, initial encounter Assessment/Plan: s/p mechanical fall with right orbital and mandibular fractures s/p MMF awaiting placement in appropriate facility Will Rx headache and continue PT/OT comfort measures Subjective: c/o headache, sitting up in bed eating Cream of wheat Objective: Vital Signs Temp Pulse Resp BP Pulse Ox 36.4 C 88 16 124/81 H 94 01/31/18 07:35 01/31/18 07:35 01/31/18 07:35 01/31/18 07:35 01/31/18 07:35 Laboratory Results 01/29/18 05:30 01/29/18 05:30 01/30/18 01/31/18 02/01/18 05:59 05:59 05:59 Intake Total 1100 400 400 Output Total 700 Balance 400 400 400 PT 14.5 SEC (12.0-15.0) 01/26/18 19:35 INR 1.11 (0.83-1.16) 01/26/18 19:35 - C-Spine Clearance Cervical Spine Cleared: Yes Provider who Cleared Cervical Spine: MINI Physical Exam - Physical Exam General Appearance: alert, thin EENT: PERRL/EOMI, other (right tanesha-orbital ecchymosis/right suprorbital laceration healing without sins of infection/MMF wires intact) Neck: tender midline (C5-6) Respiratory: lungs clear, normal breath sounds, decreased breath sounds Cardiac/Chest: regular rate, rhythm Abdomen: non-tender, soft
[2018-01-31] MEDS: ATORVASTATIN CALCIUM 40 MG TAB PO SCH (09:16)
[2018-01-31] MEDS: SENNOSIDES/DOCUSATE SODIUM TAB PO SCH ×2 (09:16→21:10)
[2018-01-31] MEDS: BACITRACIN OINTMENT 1 PACKET TP SCH ×2 (09:17→21:11)
[2018-01-31] MEDS: levETIRAcetam 250 MG TAB PO SCH ×2 (09:17→21:09)
[2018-01-31] MEDS: MAGNESIUM HYDROXIDE 30 ML UDCUP PO PRN (09:17)
[2018-01-31] MEDS: ACETAMINOPHEN/ASA/CAFFEINE 1 EACH TAB PO PRN ×2 (10:35→19:48)
[2018-01-31] MEDS: lamoTRIgine 100 MG TAB PO SCH (21:09)
[2018-01-31] MEDS: OLANZapine 10 MG TAB PO SCH (21:10)
--- NOTE | 2018-02-01 09:43 | SOAPPROG ---
SOAP Progress Note Assessment/Plan: Assessment: SEEN WITH MY PA MARIZA FERNANDEZ/ PLEASE REFER TO HER NOTE ORIENTED, ALERT AND COOPERATIVE STATUS POST HEAD INJURY APPEARS TO BE STABLE FROM HER INJURIES Plan: BEGIN WHERE JAW DIET/TRANSFER TO MED SURGE 01/29/18 12:20 02/01/18 09:42 STABLE VITAL SIGNS /STABLE JAW FIXATION/ALERT AND COOPERATIVE TRANSFER TO SNF WHEN AVAILABLE POSSIBLY FOREHEAD SUTURES OUT IN THE A.M. Objective: Vital Signs Temp Pulse Resp BP Pulse Ox 36.7 C 97 16 133/88 H 95 02/01/18 07:17 02/01/18 07:17 02/01/18 07:17 02/01/18 07:17 02/01/18 07:17 Laboratory Results 01/29/18 05:30 01/29/18 05:30 01/31/18 02/01/18 02/02/18 05:59 05:59 05:59 Intake Total 400 900 Balance 400 900 PT 14.5 SEC (12.0-15.0) 01/26/18 19:35 INR 1.11 (0.83-1.16) 01/26/18 19:35 ICD10 Worksheet Patient Problems: Problems Problem Status Onset Fall Acute Laceration of face without complication Acute Mandibular fracture, closed Acute Orbital roof fracture Acute Subarachnoid hemorrhage following injury Acute Subarachnoid hemorrhage following injury Acute Tenderness of neck Acute
[2018-02-01] MEDS: levETIRAcetam 250 MG TAB PO SCH ×2 (09:56→20:13)
[2018-02-01] MEDS: SENNOSIDES/DOCUSATE SODIUM TAB PO SCH ×2 (09:56→20:13)
[2018-02-01] MEDS: BACITRACIN OINTMENT 1 PACKET TP SCH ×2 (09:57→20:13)
[2018-02-01] MEDS: ATORVASTATIN CALCIUM 40 MG TAB PO SCH (09:57)
[2018-02-01] MEDS: HYDROCODONE/APAP 5/325 TAB PO PRN ×2 (09:57→18:21)
[2018-02-01] MEDS: MAGNESIUM HYDROXIDE 30 ML UDCUP PO PRN (10:00)
[2018-02-01] MEDS: OLANZapine 10 MG TAB PO SCH (20:13)
[2018-02-01] MEDS: lamoTRIgine 100 MG TAB PO SCH (20:13)
[2018-02-01] MEDS: ACETAMINOPHEN/ASA/CAFFEINE 1 EACH TAB PO PRN (20:18)
[2018-02-02 07:40] VITALS: BP 119/70
[2018-02-02] MEDS: HYDROCODONE/APAP 5/325 TAB PO PRN ×2 (08:02→13:53)
[2018-02-02] MEDS: ATORVASTATIN CALCIUM 40 MG TAB PO SCH (08:02)
[2018-02-02] MEDS: SENNOSIDES/DOCUSATE SODIUM TAB PO SCH (08:02)
[2018-02-02] MEDS: levETIRAcetam 250 MG TAB PO SCH (08:02)
[2018-02-02] MEDS: BACITRACIN OINTMENT 1 PACKET TP SCH (08:03)
--- NOTE | 2018-02-02 09:54 | ASMTCMCOM ---
CM Note CM Note Notes: Dawna, from [facility] called and was looking for patient's pasrr level 2. This was faxed to [facility] [phone] and [facility] [phone]. Date Signed: 02/02/2018 09:53 AM Electronically Signed By:Nuria Mcdonald LCSW
--- NOTE | 2018-02-02 10:01 | TRAUMAPN ---
Trauma Progress Note Assessment/Plan: Concussion, CHI, SAH: nonoperative, neurosurgery has signed off Mandibular fracture: s/p ORIF Dr. Estevez. Ok to have wired jaw diet Orbital roof fx: nonoperative Dr. Negrete Neck pain: CT negative Face laceration: will need sutures out in 7-10 days S: Sitting in chair. C/o pain O: Afebrile Face: laceration cdi, sutures intact, R periorbital ecchymosis Neuro: A&Ox3 Cardiac: RRR Lungs: CTA bilaterally Abdomen: soft, nontender Subjective: Still has pain. No other complaints. Likely going to [place] today. Sutures to come out prior to discharge. Objective: Vital Signs Temp Pulse Resp BP Pulse Ox 36.2 C 84 16 119/70 95 02/02/18 07:37 02/02/18 07:37 02/02/18 07:37 02/02/18 07:37 02/02/18 07:37 Laboratory Results 01/29/18 05:30 01/29/18 05:30 02/01/18 02/02/18 02/03/18 05:59 05:59 05:59 Intake Total 900 Output Total 21 Balance 900 -21 PT 14.5 SEC (12.0-15.0) 01/26/18 19:35 INR 1.11 (0.83-1.16) 01/26/18 19:35 - C-Spine Clearance Cervical Spine Cleared: Yes Provider who Cleared Cervical Spine: MINI
--- NOTE | 2018-02-02 11:23 | PDIAF ---
- Diagnosis Code Status: Full Code - Medication Management Discharge Medications: Medications to Continue on Transfer LORazepam [Ativan (*)] 1 mg PO BID PRN 01/26/18 [Last Taken Unknown] PARoxetine HCL [Paxil 30mg (*)] 30 mg PO HS 01/26/18 [Last Taken Unknown] Alendronate Sodium [Fosamax 70 MG (*)] 70 mg PO Q7D 01/27/18 [Last Taken Unknown ] Atorvastatin Calcium [Lipitor 40 mg (*)] 40 mg PO DAILY 01/27/18 [Last Taken Unknown] Calcium Carbonate/Vitamin D3 [Calcium 600-Vit D3 800 Tablet] 1 tab PO DAILY [Last Taken Unknown] Ferrous Sulfate [Ferrous Sulf 325 MG (*)] 325 mg PO DAILY 01/27/18 [Last Taken Unknown] OLANZapine [Zyprexa] 15 mg PO HS 01/27/18 [Last Taken Unknown] lamoTRIgine [LamICTAL 100 MG (*)] 200 mg PO HS 01/27/18 [Last Taken Unknown] Hydrocodone/APAP 5/325 [[place] 5/325 (*)] 1 - 2 tab PO Q6HRS PRN tab 02/02/18 [ Last Taken Unknown] levETIRAcetam [Keppra 250 mg (*)] 750 mg PO BID 7 Days tab 02/02/18 [Last Taken Unknown] Discharge Medications: Refer to the Discharge Home Medication list for PRN reason. - Orders Services needed: Registered Nurse, Physical Therapy, Occupational Therapy Diet Recommendation: no restrictions on diet Diet Texture: Thin Liquids Additional Instructions: Continue Keppra for one more week. Follow up with Dr. Estevez in 1 week. Follow up with Dr Chaparro in 2-3 weeks with repeat head CT ( Feb 09 - ) , to schedule follow up appointment Follow up with Dr. Bernal in 1 week. - Follow Up Care Current Providers and Referrals: Sim Bernal MD [Medical Doctor] - Doretha Estevez DDS [Doctor of Dental Surgery] - (Follow up 1 week after discharge. Non-chew diet for 6-8 weeks. ) Rey Chaparro MD [Medical Doctor] -
--- NOTE | 2018-02-02 14:07 | ASMTLACE ---
LACE Length of stay for Answers: 7-13 days current admission Acuity / Level of Answers: Yes Care: Did the patient have an inpatient admission? # of Emergency department Answers: 1-2 visits in the last 6 months Score: 9 Date Signed: 02/02/2018 02:06 PM Electronically Signed By:AMBAR Lancaster
--- NOTE | 2018-02-02 14:09 | ASMTCMCOM ---
CM Note CM Note Notes: Pt medically stable for d/c to [place]. Approved PASRR sent to [facility] this morning and approved by [facility]. Orders sent in [employer]. JUVENTINO Tyler to call report. Radha with [facility] scheduled transport. Pt brother updated. Date Signed: 02/02/2018 02:08 PM Electronically Signed By:AMBAR Lancaster
--- NOTE | 2018-02-02 14:11 | ASDISCHSUM ---
Discharge Information Plan Status:SNF Medically Cleared to Leave: Discharge Date:02/02/2018 02:01 PM CM D/C Disposition:[facility] Facility ADT D/C Disposition:[facility] Facility Projected Discharge Date:01/30/2018 11:00 AM Transportation at D/C:Family Discharge Delay Reason: Follow-Up Date:01/30/2018 11:00 AM Discharge Slot: Final Diagnosis:Fall: ICH, Orbital fx, Mandible fx Placement Information Referral Type:*Penitentiary/SNF Referral ID:[id number] Provider Name:Marina Gonzalezulder Address 1:[address] Address 2: City:[place] Selection Factors: State:[place] Patient Contact Information Contact Name:DIOMEDES Relationship: Address: Work Phone: City: [facility] Phone: [facility]/Zip Code: Email: Financial Information Financial Class:Medicare Primary Plan Desc:MEDICARE INPATIENT Primary Plan Number:[id number] Secondary Plan Desc:[place] Secondary Plan Number:[id number] Assessment Information LACE LACE Length of stay for Answers: 7-13 days current admission Acuity / Level of Answers: Yes Care: Did the patient have an inpatient admission? # of Emergency department Answers: 1-2 visits in the last 6 months Score: 9 Date Signed: 02/02/2018 02:06 PM Electronically Signed By:AMBAR Lancaster [facility] Progress Note CM Chelsey CM Note Notes: 62yr old female who fell while walking her dog, admitted for SAH, Facial fx's. Patient had BAL of 114 at the time. Spoke to her brother, Neil who reports that she takes Ativan and other meds for her dx schizophrenia and bipolar. Neil reports that patient lives with her service dog in a apartment in [place]. Patient to have her jaw wired and she will be on a liquid/non chew diet for 6-8wks. Brother, Neil does not feel as though patient could take care of herself at home and hoping that she could go to a Rehab before going home. Therapies have begun working with her. CM to follow for discharge needs. Date Signed: 01/27/2018 02:43 PM Electronically Signed By:Nuria Mcdonald LCSW [facility] Progress Note CM Note CM Note Notes: Therapies recommending SNF Rehab. To have mandible surgery today and MRI R foot-c/o numbness. Spkoe to patient's brother, Neil about location of SNF's. He prefers that she stay in [facility]. Referrals sent to [place] SNF's Date Signed: 01/28/2018 01:54 PM Electronically Signed By:Nuria Mcdonald LCSW [facility] Progress Note CM Chelsey CM Note Notes: Referrals sent out. Pasrr completed and faxed to An[facility] today. Date Signed: 01/28/2018 02:50 PM Electronically Signed By:Nuria Mcdonald LCSW [facility] Progress Note CM Note CM Note Notes: [facility] is interested [facility] patient but they need her to sign a release so they can check on her Medicaid which is coming up lapsed in their computer. CM checked with Ivanna here and they stated patient's Medicaid is current. Ajit from [facility] would still like to check on it and requested the release. The release forms were left on 3N desk as it was not obtained today. Spoke with from inpatient rehab and she states she thinks patient is more appropriate for SNF as her jaw is wired shut and this poses many issues in 24 hour care. [facility] is willing to take the patient if her Medicaid is current . CM to get release signed and faxed to [facility]. Inpatient rehab said they would reevaluate Friday if the patient was still here. SNF rehab appears to be the better overall choice at this time for patient. CM will follow. Date Signed: 01/30/2018 05:53 PM Electronically Signed By:Fozia Rosas LCSW [facility] Progress Note CM Note CM Note Notes: Dawna, from [facility] called and was looking for patient's pasrr level 2. This was faxed to [facility] [phone] and [facility] [phone]. Date Signed: 02/02/2018 09:53 AM Electronically Signed By:Nuria Mcdonald LCSW [facility] CM Progress Note CM Note CM Note Notes: Pt medically stable for d/c to [facility]. Approved PASRR sent to [facility] this morning and approved by [facility]. Orders sent in [employer]. JUVENTINO Tyler to call report. Radha with [facility] scheduled transport. Pt updated. Date Signed: 02/02/2018 02:08 PM Electronically Signed By:AMBAR Lancaster Intervention Information Intervention Type:*Incorrect Registration Date of Service:01/27/2018 09:21 AM Patient Type:Observation Staff Member:Melida Najera Hours: Discipline: Severity: Comment: Intervention Type:*IM-Signed Date of Service:02/02/2018 10:40 AM Patient Type:Inpatient Staff Member:Letty Day Hours: Discipline: Severity: Comment:
== END 2018-02-02 14:01 | DRG 131 ==
LOC: EDBD 19:34 → OBSVTOIN 21:22 → F2N 22:34 → F3N 01-30 16:02
PROVIDERS: ADMIT Surgery; ATTEND Surgery
PROC: 0JQ13ZZ Repair Face Subcutaneous Tissue and Fascia, Percutaneous Approach (ICD-10-PCS; 2018-01-26)
PROC: 0NST04Z Reposition Right Mandible with Internal Fixation Device, Open Approach (ICD-10-PCS; principal; 2018-01-28 15:30)
DX: S02.611A Fracture of condylar process of right mandible, initial encounter for closed fracture (principal); S06.6X0A Traumatic subarachnoid hemorrhage without loss of consciousness, initial encounter; S01.81XA Laceration without foreign body of other part of head, initial encounter; S40.011A Contusion of right shoulder, initial encounter; S60.211A Contusion of right wrist, initial encounter; W01.0XXA Fall on same level from slipping, tripping and stumbling without subsequent striking against object, initial encounter; Y93.K1 Activity, walking an animal; R40.2411 Glasgow coma scale score 13-15, in the field [EMT or ambulance]; F10.129 Alcohol abuse with intoxication, unspecified; F20.9 Schizophrenia, unspecified; F31.9 Bipolar disorder, unspecified; Y90.5 Blood alcohol level of 100-119 mg/100 ml
CPT/HCPCS: 92507-GN; 92523-GN; 97110-GP; 97112-GP; 97116-GP; 97162-GP; 97166-GO; 97530-GO; 97535-GO; C1713; G0480; G0515-GO; G8978-GP-CK; G8979-GP-CI; G8987-GO-CK; G8988-GO-CI; G9165-GN-CJ; G9166-GN-CI; G9166-GN-CJ; G9167-GN-CJ; J0690; J1100; J2270; J2370; J2405; J2704; J3010; J3360; L0172; Q9967